=== PATIENT | female | born 1945 | race Hispanic/Latino ===

== ENCOUNTER → 2017-07-25 | Outpatient (CLI) | payer OTHER ==
[~2017-07-25] MED LIST: APIX5TAB PO; ASPI-555 PO; AZIT2.5D4 OP; DILT120T PO; DOCU-132 PO; ESTR1PAT33 TD; FAMO-136 PO; LIGH1DRO OP; MESA1S PR; MOME17N NASAL
== END | disposition home or self-care (01) ==
LOC: OIH 15:37
PROVIDERS: ATTEND Internal Medicine
DX: M47.894 Other spondylosis, thoracic region (principal)
CPT/HCPCS: 72070

== ENCOUNTER 2018-09-12 20:31 | Emergency (ER) | payer OTHER ==
[2018-09-12] MEDS ORDERED: SILVER SULFADIAZINE CREAM 50 GM TP ONE (21:04)
[2018-09-12] MEDS ORDERED: ACETAMINOPHEN 325 MG TAB ONE (21:04)
== END 2018-09-12 21:32 | disposition home or self-care (01) ==
LOC: EDH 20:31
DX: T22.111A Burn of first degree of right forearm, initial encounter (principal); T31.0 Burns involving less than 10% of body surface; I48.91 Unspecified atrial fibrillation; X11.8XXA Contact with other hot tap-water, initial encounter; Y93.89 Activity, other specified; Y92.89 Other specified places as the place of occurrence of the external cause; Y99.8 Other external cause status
CPT/HCPCS: 16000

== ENCOUNTER → 2018-10-07 | Outpatient (CLI) | payer OTHER | END | disposition home or self-care (01) | LOC: OIH 09:43 | PROVIDERS: ATTEND Internal Medicine | DX: M47.814 Spondylosis without myelopathy or radiculopathy, thoracic region (principal); M54.5 Low back pain | CPT/HCPCS: 72070 ==

== ENCOUNTER → 2019-04-13 | Outpatient (CLI) | payer OTHER | END | disposition home or self-care (01) | LOC: RAH 13:12 | PROVIDERS: ATTEND Internal Medicine Cardiovascular Disease | DX: Z13.6 Encounter for screening for cardiovascular disorders (principal) | CPT/HCPCS: 75571 ==

== ENCOUNTER 2019-06-05 06:04 | Day surgery (SDC) | payer OTHER ==
[~2019-06-05] VITALS: Ht 167.6 cm; Wt 63.0 kg
[~2019-06-05 06:04] MED LIST changes: -ASPI-555 PO; -AZIT2.5D4 OP; -DILT120T PO; -ESTR1PAT33 TD; -FAMO-136 PO; -LIGH1DRO OP
[2019-06-05] MEDS ORDERED: SODIUM CHLORIDE 0.9% 1000ML 1,000 ML IV ONE (06:26)
[2019-06-05 07:09] VITALS: BP 139/79
[2019-06-05] MEDS ORDERED: PROPOFOL 10 MG/ML 20ML VIAL IV ONE ×2 (08:19)
[2019-06-05] MEDS ORDERED: LIDOCAINE HCL 2% 20ML ONE (08:21)
[2019-06-05 08:35] VITALS: BP 108/70
[2019-06-05 08:40] VITALS: BP 108/70
[2019-06-05 08:45] VITALS: BP 126/73
[2019-06-05 08:55] VITALS: BP 113/69
== END 2019-06-05 09:00 | disposition home or self-care (01) ==
LOC: DAH 06:04 → ENDO 06:04
PROVIDERS: ATTEND Internal Medicine Gastroenterology
DX: R10.13 Epigastric pain (principal); K29.50 Unspecified chronic gastritis without bleeding; I48.91 Unspecified atrial fibrillation; M85.80 Other specified disorders of bone density and structure, unspecified site; Z79.01 Long term (current) use of anticoagulants; Z79.899 Other long term (current) drug therapy; Z90.49 Acquired absence of other specified parts of digestive tract; Z90.710 Acquired absence of both cervix and uterus; Z98.890 Other specified postprocedural states; Z72.89 Other problems related to lifestyle; Z88.1 Allergy status to other antibiotic agents; Z88.3 Allergy status to other anti-infective agents; Z88.2 Allergy status to sulfonamides; Z88.8 Allergy status to other drugs, medicaments and biological substances; Z82.49 Family history of ischemic heart disease and other diseases of the circulatory system; Z83.3 Family history of diabetes mellitus
CPT/HCPCS: 43239; 88305; A4215; A4221; A4222; A4223; A4606; A4615; A4663; J2704 ×2; J3490; J7030

== ENCOUNTER → 2023-08-23 | Outpatient (CLI) | payer MEDICARE, OTHER | END | disposition home or self-care (01) | LOC: RAH 08:53 | PROVIDERS: ATTEND Internal Medicine | DX: R05.9 Cough, unspecified (principal) | CPT/HCPCS: 71046 ==